=== PATIENT | female | born 1960 | race Hispanic/Latino ===

== ENCOUNTER → 2016-09-07 | Outpatient (CLI) | payer OTHER ==
[~2016-09-07] MED LIST: ALEVE220 M2 PO; AMOXICILLIN500 MG PO; BIOTIN1000 MICRO PO; CALCITRIOL0.25 MCG PO; CALCIUM 500 MG1 EACH PO; CYTOMEL25 MCG PO; EXCEDRIN EXT1 TABLET PO; Glucophage PO; HYDROMORPHONE HC2 MG PO; LOSARTAN POTASS50 MG PO; LYRICA75 MG PO; METFORMIN HCL500 M1 PO; METFORMIN HCL500 M2 PO; METFORMIN HCL500 MG PO; MIRALAX17 GM PO; MOTRIN IB200 MG PO; NITROSTAT0.4 MG SL; NORCO 5/3251 TABLET PO; PERCOCET 5/31 TABLET PO; PROPRANOLOL HCL80 MG PO; PROTONIX40 MG PO; Protonix PO; Rocaltrol PO; SYNTHROID175 MCG PO; SYNTHROID200 MCG PO; SYNTHROID75 MCG PO; TUMS500 MG PO; Tums PO; Tums,OsCal PO; VAGIFEM10 MCG VG; VICODIN 5-3001 EACH PO; VITAMIN B-122500 MCG SL; VITAMIN D1000 UNIT PO; VITAMIN D31000 UNIT PO; Vicodin,Norco 5/325 PO; ZOFRAN ODT4 MG PO; ZOFRAN4 MG PO; [UNRECOGNIZED DRUG - OTHER]
== END | disposition home or self-care (01) ==
LOC: NUC 06:53
DX: R10.12 Left upper quadrant pain (principal)
CPT/HCPCS: 78264; A9541

== ENCOUNTER 2016-11-06 22:22 | Emergency (ER) | payer OTHER ==
[~2016-11-06] VITALS: Ht 167.6 cm; Wt 109.5 kg
[2016-11-06 23:22] LABS: HEMATOCRIT 37.9 % (36.0-46.0); MCH 29.9 PG (29.0-34.0); MCHC 33.8 G/DL (30.0-36.0); MCV 88.6 FL (83-99); MEAN PLAT.VOLUME 9.8 uM^3 (9.5-12.4); PLATELET COUNT 320 K/uL (156-360); RBC DIS.WIDTH-CV 13.9 % (11.8-14.6); RBC DIS.WIDTH-SD 45.1 % (39-53); RED BLOOD COUNT 4.28 M/uL (3.80-5.20); WHITE BLOOD COUNT 7.9 K/uL (4.1-10.2)
[2016-11-06 23:33] LABS: CHLORIDE 106 mEq/L (99-109); SODIUM 140 mEq/L (136-147)
[2016-11-06 23:35] LABS: GLUCOSE 130 mg/dL (70-99)
[2016-11-06 23:36] LABS: ANION GAP 11 MEQ/L (2-14)
[2016-11-06 23:37] LABS: TOTAL BILIRUBIN 0.9 mg/dL (0.0-1.0)
[2016-11-06 23:38] LABS: ALKALINE PHOSPHATASE 84 IU/L (3-129)
[2016-11-06 23:38] LABS: ADD MIUA? YES; BILIRUBIN NEGATIVE; BLOOD SMALL; COLOR STRAW ((YELLOW)); GLUCOSE (STRIP) NEGATIVE; KETONES NEGATIVE; LEUKOCYTES NEGATIVE; NITRITE NEGATIVE; PROTEIN (STRIP) NEGATIVE; UROBILINOGEN 0.2 MG/DL (0.2-1.0)
[2016-11-06 23:39] LABS: GFR ESTIMATE (CALCULATED) > 59 mL/min/
[2016-11-06 23:40] LABS: UREA NITROGEN (BUN) 15 mg/dL (9-23)
[2016-11-06 23:49] LABS: QUANTITATIVE HCG < 4.0 MIU/ML
[2016-11-06 23:51] LABS: TROP-I INTERPRETATION NEGATIVE; TROPONIN-I < 0.01 ng/mL (0.0-0.30)
[2016-11-06 23:57] LABS: BACTERIA RARE /HPF; EPITHELIAL CELLS RARE /HPF; MUCUS TRACE /LPF; RED BLOOD CELLS 0-5 /HPF (0-5); UCUL ADDED? NO; WHITE BLOOD CELLS 0-5 /HPF (0-5)
[2016-11-07] MEDS ORDERED: BENTYL10 MG PO (00:58)
[2016-11-07] MEDS ORDERED: ZOFRAN4 MG PO (00:59)
[2016-11-07 01:20] VITALS: BP 106/79
== END 2016-11-07 01:21 | disposition home or self-care (01) ==
LOC: EME 22:22
DX: R10.12 Left upper quadrant pain (principal); I10 Essential (primary) hypertension; E03.9 Hypothyroidism, unspecified; E11.9 Type 2 diabetes mellitus without complications; Z79.84 Long term (current) use of oral hypoglycemic drugs
CPT/HCPCS: 74177; 80053; 81003; 84484; 84702; 85027; 93005; 99281; 99284; J1200; J2270; J2405; J7030; S0028

== ENCOUNTER 2016-12-09 02:53 | Observation (INO) | payer OTHER ==
[~2016-12-09] VITALS: Ht 167.6 cm; Wt 106.5 kg
[~2016-12-09 02:53] MED LIST changes: +BENTYL10 MG PO
[2016-12-09 04:19] LABS: HEMATOCRIT 39.6 % (36.0-46.0); MCH 29.2 PG (29.0-34.0); MCHC 32.8 G/DL (30.0-36.0); MEAN PLAT.VOLUME 9.5 uM^3 (9.5-12.4); PLATELET COUNT 308 K/uL (156-360); RBC DIS.WIDTH-CV 14.4 % (11.8-14.6); RBC DIS.WIDTH-SD 46.7 % (39-53); RED BLOOD COUNT 4.45 M/uL (3.80-5.20)
[2016-12-09 04:31] LABS: CHLORIDE 102 mEq/L (99-109); POTASSIUM 3.6 mEq/L (3.7-5.4); SODIUM 139 mEq/L (136-147)
[2016-12-09 04:33] LABS: GLUCOSE 180 mg/dL (70-99)
[2016-12-09 04:34] LABS: ANION GAP 14 MEQ/L (2-14)
[2016-12-09 04:35] LABS: TOTAL BILIRUBIN 0.9 mg/dL (0.0-1.0)
[2016-12-09 04:37] LABS: ALKALINE PHOSPHATASE 95 IU/L (3-129); D-DIMER ELISA 0.48 mg/L FEU (< 0.57); GFR ESTIMATE (CALCULATED) > 59 mL/min/
[2016-12-09 04:38] LABS: UREA NITROGEN (BUN) 16 mg/dL (9-23)
[2016-12-09 04:39] LABS: DIRECT BILIRUBIN 0.2 mg/dL (0.0-0.3)
[2016-12-09 04:40] LABS: LIPASE 24 U/L (1.0-51.0)
[2016-12-09 04:41] LABS: TROP-I INTERPRETATION NEGATIVE; TROPONIN-I < 0.01 ng/mL (0.0-0.30)
[2016-12-09] MEDS ORDERED: CALCITRIOL0.5 MCG PO (05:15)
[2016-12-09] MEDS ORDERED: PIOGLITAZONE HC15 MG PO (05:15)
[2016-12-09] MEDS ORDERED: ATORVASTATIN CA20 MG PO (05:16)
[2016-12-09 07:29] VITALS: BP 113/66
[2016-12-09 11:44] LABS: MAGNESIUM 2.3 mg/dL (1.3-2.7)
[2016-12-09 12:00] VITALS: BP 107/57
[2016-12-09 12:22] LABS: TROP-I INTERPRETATION NEGATIVE; TROPONIN-I < 0.01 ng/mL (0.0-0.30)
[2016-12-09 13:05] LABS: POINT-OF-CARE METER ID UU14162513
[2016-12-09 16:00] VITALS: BP 131/73
[2016-12-09 18:02] LABS: TROP-I INTERPRETATION NEGATIVE; TROPONIN-I < 0.01 ng/mL (0.0-0.30)
[2016-12-09 20:00] VITALS: BP 117/75
== END 2016-12-09 20:21 | disposition home or self-care (01) ==
LOC: EME 02:53 → EDOF 06:14 → 5WEST 07:16
PROVIDERS: Hospitalist
DX: R07.89 Other chest pain (principal); R10.13 Epigastric pain; E87.6 Hypokalemia; E83.51 Hypocalcemia; M79.7 Fibromyalgia; I10 Essential (primary) hypertension; E78.5 Hyperlipidemia, unspecified; E11.9 Type 2 diabetes mellitus without complications; E03.9 Hypothyroidism, unspecified; G43.909 Migraine, unspecified, not intractable, without status migrainosus; K21.9 Gastro-esophageal reflux disease without esophagitis; M19.90 Unspecified osteoarthritis, unspecified site; R00.1 Bradycardia, unspecified
CPT/HCPCS: 71020; 74000; 80048; 80076; 82948; 83690; 83735; 84484; 85027; 85379; 93005; 94010; 99281; 99284; G0378; J1650; J2270; J2405

== ENCOUNTER 2018-02-04 08:01 | Emergency (ER) | payer OTHER ==
[~2018-02-04] VITALS: Ht 167.6 cm; Wt 86.3 kg
[~2018-02-04 08:01] MED LIST changes: +ATORVASTATIN CA20 MG PO; +CALCITRIOL0.5 MCG PO; +PIOGLITAZONE HC15 MG PO
[2018-02-04 08:58] LABS: ALBUMIN 4.1 g/dL (3.2-4.8); CHLORIDE 104 mEq/L (99-109); POTASSIUM 3.8 mEq/L (3.7-5.4); SODIUM 140 mEq/L (136-147)
[2018-02-04 09:00] LABS: GLUCOSE 179 mg/dL (70-99); TOTAL PROTEIN 7.7 g/dL (6.4-8.3)
[2018-02-04 09:02] LABS: HEMATOCRIT 37.6 % (36.0-46.0); HEMOGLOBIN 12.2 G/DL (11.9-15.5); MCH 28.8 PG (29.0-34.0); MCHC 32.4 G/DL (30.0-36.0); MCV 88.9 FL (83-99); PLATELET COUNT 296 K/uL (156-360); RBC DIS.WIDTH-CV 13.7 % (11.8-14.6); RBC DIS.WIDTH-SD 44.8 % (39-53); RED BLOOD COUNT 4.23 M/uL (3.80-5.20); TOTAL BILIRUBIN 1.4 mg/dL (0.0-1.0); WHITE BLOOD COUNT 5.8 K/uL (4.1-10.2)
[2018-02-04 09:04] LABS: ALKALINE PHOSPHATASE 101 IU/L (3-129); CREATININE 0.8 mg/dL (0.6-1.3); GFR ESTIMATE (CALCULATED) > 59 mL/min/
[2018-02-04 09:05] LABS: UREA NITROGEN (BUN) 15 mg/dL (9-23)
[2018-02-04 09:06] LABS: AST (GOT) 22 IU/L (2-34)
[2018-02-04 09:07] LABS: ALT (GPT) 21 IU/L (3-49)
[2018-02-04 10:36] LABS: THYROTROPIN (TSH) 0.04 MIU/L (0.4-5.5)
[2018-02-04 10:48] VITALS: BP 126/80
[2018-02-04 10:50] LABS: INTACT PARATHYROID HORMONE 7 pg/mL (10-69)
== END 2018-02-04 11:00 | disposition home or self-care (01) ==
LOC: EME 08:01
PROVIDERS: Emergency Medicine
DX: E83.51 Hypocalcemia (principal); R25.2 Cramp and spasm; R07.89 Other chest pain; I10 Essential (primary) hypertension; E78.5 Hyperlipidemia, unspecified; E03.9 Hypothyroidism, unspecified; E11.9 Type 2 diabetes mellitus without complications; Z79.84 Long term (current) use of oral hypoglycemic drugs; Z85.850 Personal history of malignant neoplasm of thyroid; Z90.710 Acquired absence of both cervix and uterus
CPT/HCPCS: 80053; 83735; 83970; 84439; 84443; 85027; 93005; 99281; 99284; J7050